=== PATIENT | female | born 1975 | race Caucasian/White ===

== ENCOUNTER 2017-08-02 12:14 | Emergency (ER) | payer OTHER ==
[2017-08-02 12:48] VITALS: TEMP 97.8; O2SAT 96
[2017-08-02 14:02] VITALS: BP 134/88; PULSE 78; RESP 16
== END 2017-08-02 15:24 | disposition short-term general hospital (02) | DRG 918 ==
LOC: ED 12:14
DX: T58.02XA Toxic effect of carbon monoxide from motor vehicle exhaust, intentional self-harm, initial encounter (principal)
CPT/HCPCS: 99284; 99285